=== PATIENT | female | born 1965 | race Caucasian/White ===

== ENCOUNTER 2016-08-02 23:01 | Inpatient (IN) ==
[2016-08-02] MEDS ORDERED: THIAMINE 200 MG/2 ML VIAL IV STA (23:28)
[2016-08-02] MEDS ORDERED: SODIUM CHLORIDE 0.9% 1,000 ML IV STA (23:28)
--- NOTE | 2016-08-02 23:34 | Emergency Department Note ---
Arrival - Arrival Chief Complaint: Altered Mental Status ED Nursing Triage Note: C/O Altered mental status. Onset EMS reports that pts states he has been "fighting" with her all day because she has been so confused. reported hyperglycemia earlier today of 540- Pt was given 35 units of her regular insulin by her and last FSG was 169, denies any changes in her mental status even after the glucose has come down. Pt wakes up with verbal stimuli, withdraws from pain and is inappropriate with communication. The only answer she gives is "2016". Family at bedside, but they are unaware of her medical history. is on his way per EMS. EMS gave 250ml NS/2 dose of narcan without any relief in symptoms Mode of Arrival: Stretcher Limitations: Altered Mental Status Source: Family, EMS Time Seen by Provider: 08/02/16 23:15 - History of Present Illness HPI Narrative: History is limited due to the patient's altered mental status. The family that is present is also not able to give much history. Apparently at some point early in the day the patient was confused and had decreased responsiveness. They think she was hypoglycemic and was given something to get her glucose up. At this point she was hyperglycemic and was given insulin to get it down. Her mental status has not changed during all of this. They report no recent illness or other symptoms. She has just confused, mumbling and not cooperative. They do not think she has ever had episodes like this before. They denied drug use but states she does drink alcohol regularly. Her last drink was yesterday. She was given Narcan by EMS without change. Date of Last Menstrual Period: unknown Allergies/Adverse Reactions: Allergies Allergy/AdvReac Type Severity Reaction Status Date / Time Unable to Obtain Allergy Unverified 08/02/16 23:11 Home Medications: Home Medications Medication Instructions Recorded Confirmed Type Unable To Obtain [Unable to Obtain] 08/02/16 08/02/16 History Review of System - Review of System ROS unobtainable: due to mental status Medical,Surgical,& Family Hx - Medical History Endocrine: History of: Diabetes Mellitus (IDDM) - Social History Smoking Status: Unknown if ever smoked Frequency of Alcohol Use: Unknown Type of Drug Use: Unknown Exam Physical Examination: GENERAL: Alert. Awake . Staring at fingers . Not cooperative with history or exam. No acute distress. HEENT: Normocephalic and atraumatic. PERRLA. EOMI. There is no nasal drainage. Uncooperative with oropharyngeal exam. NECK: Normal inspection. Supple. No lymphadenopathy or meningismus. LUNGS: No respiratory distress. Clear to auscultation bilaterally, no wheezes, rales or rhonchi. HEART: Regular rate and rhythm. ABDOMEN: Soft, nontender and nondistended with normoactive bowel sounds. BACK: Normal inspection. SKIN: Color normal. Warm and dry. EXTREMITIES: Nontender. Normal range of motion. No pedal edema. NEUROLOGICAL/PSYCHIATRIC: Awake and alert. Uncooperative with history or physical. The patient is staring at her fingers and pinching one hand with other. When asked if she sees anything there she only mumbles unintelligibly. Movements are all very slow but there is no obvious cranial, motor or sensory deficit. Vital Signs: Vital Signs Temperature 98.4 F 08/02/16 23:01 Pulse Rate 111 H 08/02/16 23:01 Respiratory Rate 16 08/03/16 00:16 Blood Pressure 135/84 08/02/16 23:01 O2 Sat by Pulse Oximetry 98 08/02/16 23:01 Course - Reevaluation(s) Reevaluation #1: The patient has been combative at times and also almost catatonic at times. She is uncooperative and still will not give any history. At times it appears she is seeing things on her hands but will not confirm that. Her workup is negative. I suspect that this is alcohol withdrawal based on the very limited history that I have. I have discussed the patient with Dr. Harkins who will see her and admit. Time: 01:05 Results - Labs CBC & BMP: 08/02/16 23:59 08/02/16 23:59 Lab Results: I have reviewed the patients labs Labs: Laboratory Tests 08/02/16 08/02/16 08/02/16 00:10 23:59 23:59 ABG pH 7.427 ABG pCO2 32.4 L ABG pO2 102.0 H ABG HCO3 22.7 ABG Total CO2 18.5 L ABG O2 Saturation 98.3 ABG Base Excess -2.1 FiO2 24.00 Magnesium 2.4 Total Bilirubin 0.40 AST 14 ALT 14 Ammonia < 10 L Urine Glucose (UA) Urine Ketones Urine Leukocytes Urine RBC Urine WBC Urine Opiates Screen Negative Ur Barbiturates Screen Negative Ur Phencyclidine Scrn Negative U Amphetamine/Methamph Negative U Benzodiazepines Scrn Negative U Cocaine Metab Screen Negative U Cannabinoids Screen Negative Serum Alcohol < 15 L 08/02/16 23:59 ABG pH ABG pCO2 ABG pO2 ABG HCO3 ABG Total CO2 ABG O2 Saturation ABG Base Excess FiO2 Magnesium Total Bilirubin AST ALT Ammonia Urine Glucose (UA) >=500 Urine Ketones 20 Urine Leukocytes Negative Urine RBC <1 Urine WBC 1 Urine Opiates Screen Ur Barbiturates Screen Ur Phencyclidine Scrn U Amphetamine/Methamph U Benzodiazepines Scrn U Cocaine Metab Screen U Cannabinoids Screen Serum Alcohol Disposition Clinical Impression: Altered mental status Case discussed with: patient, patient's family Disposition: Still a Patient Condition: Stable Time of Disposition: 01:07
[2016-08-02] MEDS ORDERED: THIAMINE 200 MG/2 ML VIAL ONE (23:42)
[2016-08-03 00:08] LABS: Basophils # 0.1 10*3/uL (0.0-0.2); Basophils % 0.8 % (0.0-0.8); Eosinophils # 0.1 10*3/uL (0.0-0.87); Eosinophils % 0.6 % (0.00-10.9); Hematocrit 40.6 VOL% (35.7-47.0); Hemoglobin 12.9 GM/DL (12.0-16.0); Immature Granulocytes % 0.5 %; Immature Granulocytes Absolute 0.06 #; Lymphocytes % 23.4 % (21.3-54.2); Mean Corpuscular HGB Conc 31.8 GM/DL (32-36); Mean Corpuscular Hemoglobin 29 PG (27-34); Mean Corpuscular Volume 91.2 FL (87-102); Mean Platelet Volume 10.6 FL (9.6-12.0); Monocytes # 1.5 10*3/uL (0.11-0.8); Monocytes % 11.7 % (1.7-12.7); Neutrophils # 8.2 10*3/uL (1.4-7.4); Platelet Count 390 10*3/uL (130-400); Red Blood Count 4.45 10*6/uL (3.8-5.5); Red Cell Distribution Width 15.5 % (9.3-17.3); White Blood Count 12.9 10*3/uL (4.5-13.71)
[2016-08-03 00:16] LABS: Apearance,Urine CLEAR (Clear); Bilirubin,Urine Negative (Negative); Blood, Urine Negative (Negative); Glucose,Urine (UA) >=500 mg/dL (Negative); Ketones,Urine 20 mg/dL (Negative); Nitrite,Urine Negative (Negative); Protein,Urine Negative; RBC,Urine <1 /HPF (0-4); Squamous Epithelial Cell,Urine Occasional /HPF (0-10); Urine Color Yellow (Yellow); Urine Specific Gravity 1.024 (1.001-1.035); Urine Urobilinogen < 2.0 EU/DL (0.2-1.0); WBC,Urine 1 /HPF (0-6)
[2016-08-03 00:24] LABS: ABG Base Excess -2.1 MMOL/L (-2.5-2.5); ABG HCO3 22.7 MMOL/L (20-26); ABG Oxygen Saturation 98.3 % (95-100); ABG PCO2 32.4 MM HG (35-48); ABG PH 7.427 (7.35-7.45); ABG TCO2 18.5 MMOL/L (23-27); Allen Test Positive; Pt O2 Delivery Device Room Air
[2016-08-03 00:34] LABS: Ammonia < 10 UMOL/L (11-32)
[2016-08-03 00:36] LABS: Alanine Aminotransferase 14 U/L (13-56); Albumin 3.6 G/DL (3.4-5.0); Alkaline Phosphatase 88 U/L (45-117); Aspartate Amino Transferase 14 U/L (0-37); Blood Urea Nitrogen 19 MG/DL (7-18); Calcium 9.2 MG/DL (8.5-10.1); Glucose 70 MG/DL (74-106); Magnesium 2.4 MG/DL (1.8-2.4); Osmolality,Calculated 287.7 MOS/KG (273-304); Potassium 4.2 MMOL/L (3.5-5.1); Sodium 145 MMOL/L (136-145); Total Protein 7.4 G/DL (6.4-8.3)
[2016-08-03 01:00] LABS: Barbiturates Screen,Urine Negative (Negative); Benzodiazepines Screen,Urine Negative (Negative); Cannabinoid Screen,Urine Negative (Negative); Opiate Screen,Urine Negative (Negative); Phencyclidine Screen,Urine Negative (Negative)
[2016-08-03] MEDS ORDERED: DEXTROSE 50% 25 GM/50 ML VIAL IV ONE (02:01)
[2016-08-03] MEDS ORDERED: DEXTROSE 50% 25 GM/50 ML VIAL IV STA (02:01)
[2016-08-03] MEDS ORDERED: ALBUTEROL 2.5 MG/3 ML NEB RESP TX PRN (02:10)
[2016-08-03] MEDS ORDERED: ACETAMINOPHEN 325 MG TABLET PO PRN (02:10)
[2016-08-03] MEDS ORDERED: MORPHINE 2 MG/1 ML SYRINGE IV PRN (02:10)
[2016-08-03] MEDS ORDERED: NICOTINE 21 MG/24 HR PATCH TRANSDERM PRN (02:10)
[2016-08-03] MEDS ORDERED: BISACODYL 5 MG TABLET PO PRN (02:10)
--- NOTE | 2016-08-03 02:10 | Hospitalist History & Physical ---
Assessment and Plan - Time spent with patient Time spent with patient: Greater than 30 minutes (1) Acute metabolic encephalopathy Status: Acute Current Visit: Yes (2) Hypoglycemic insulin reaction in type 1 diabetes mellitus Status: Acute Current Visit: Yes (3) Alcohol withdrawal Status: Acute Current Visit: Yes (4) Smoker Status: Acute Assessment and plan: Plan: 08/03: We'll admit to the ICU due to her severely labile mood and blood sugar. Now she is screaming obscenities as a nurse's try to place a Jacobson catheter. Unclear she has ingested some substance that is undetectable by our drug screen. Alternatively this could be severe encephalopathy due to prolonged hypoglycemic state. Hopefully the may be able to provide more details once we are able to reach him. Current Visit: Yes History of Present Illness Chief complaint: confused, combative, family called EMS, labile blood sugar History of present illness: Ms. Paul is a 51 year old female insulin-dependent diabetic, smoker, regular alcohol use who according to the son whose only family member at the bedside reports that the patient was found to be hypoglycemic this morning. He states that his father woke up, found her "not acting right," checked her blood sugar and it was low. Afterwards he gave her "sugary foods," to get her blood sugar up and per the chart it went up to around 540. Subsequently the gave her 20-30 units of regular insulin, called EMS and she was brought here. She has been obtunded, combative at times, and is unable to provide any history whatsoever. At the bedside ahead and recheck blood sugar and it was 20. The son can provide only limited history. The is not present. Her urine drug screen was negative, alcohol level was negative, and other than abnormal glucose, her lab work is fairly unremarkable. CT brain chest x-ray are unremarkable. There could also be a component of alcohol withdrawal, she'll be admitted to the ICU for further close observation. Home Medications Medication Instructions Recorded Confirmed Type Unable To Obtain [Unable to Obtain] 08/02/16 08/02/16 History Allergies Allergy/AdvReac Type Severity Reaction Status Date / Time Unable to Obtain Allergy Unverified 08/02/16 23:11 Medical,Surgical,& Family Hx - Medical History Cardio: No history of: Hypertension Endocrine: History of: Diabetes Mellitus (IDDM) - Surgical History Reproductive Surgeries: Surgical HX of;: Section - Family History Family History: noncontributory - Social History Smoking Status: Current every day smoker Have you smoked in the last 12 months: Yes (unable to discuss smoking cessation due to obtundation) Frequency of Alcohol Use: Frequently Type of Drug Use: Unknown Marital Status: Lives With:: Spouse Functional capacity: independent ambulation Review of systems: A 12 point review of systems is negative except as specified in the HPI Exam - Constitutional Vitals: Period Temp Pulse Resp BP Sys/Alarcon Pulse Ox Last 24 Hr 98.4 F 111 14-16 135/84 98 Exam: EXAM: CONSTITUTIONAL: Thin, disheveled, non toxic, obtunded HEENT: NC, AT, OP very poor dentition, MARIA G, EOMI CV: RRR no m/g/r RESP: clear B/L, no w/r/r GI: abd soft, NT, ND, +bowel sounds INTEGUMENTARY: no lesions or rash EXTREMITIES: no c/c/e NEURO: no focal deficits, unable to participate with full exam PSYCH: Unable to obtain Results - Labs CBC & BMP: 08/02/16 23:59 08/02/16 23:59 Lab Results: I have reviewed the past 24 hour labs - Diagnostic Findings Procedure: Chest x-ray: image reviewed by me, CT: image reviewed by me, report reviewed by me
[2016-08-03] MEDS ORDERED: DEXTROSE 50% 25 GM/50 ML VIAL IV PRN (02:14)
[2016-08-03] MEDS ORDERED: GLUCAGON 1 MG VIAL IM PRN (02:14)
[2016-08-03] MEDS ORDERED: chlordiazePOXIDE 25 MG CAPSULE PO PRN (02:15)
[2016-08-03] MEDS ORDERED: LORazepam 2 MG/1 ML VIAL IV PRN (02:15)
[2016-08-03] MEDS: INSULIN REGULAR 100 UNIT/ML SUBCUT SCH ×12 (03:27→23:50)
[2016-08-03] MEDS: DEXTROSE 5% NACL 0.45% 1,000 ML IV SCH ×2 (03:27→18:05)
[2016-08-03] MEDS: PANTOPRAZOLE 40 MG VIAL IV SCH (03:43)
[2016-08-03] MEDS: ENOXAPARIN 40 MG/0.4 ML SYRINGE SUBCUT SCH (03:43)
[2016-08-03 05:27] LABS: Basophils # 0.1 10*3/uL (0.0-0.2); Basophils % 0.7 % (0.0-0.8); Eosinophils # 0.2 10*3/uL (0.0-0.87); Eosinophils % 1.4 % (0.00-10.9); Hemoglobin 12.2 GM/DL (12.0-16.0); Immature Granulocytes % 0.4 %; Immature Granulocytes Absolute 0.05 #; Lymphocytes # 3.1 10*3/uL (1.4-4.0); Lymphocytes % 26.5 % (21.3-54.2); Mean Corpuscular HGB Conc 31.3 GM/DL (32-36); Mean Corpuscular Hemoglobin 29 PG (27-34); Mean Corpuscular Volume 92.4 FL (87-102); Mean Platelet Volume 9.9 FL (9.6-12.0); Monocytes # 1.2 10*3/uL (0.11-0.8); Monocytes % 9.9 % (1.7-12.7); Neutrophils # 7.2 10*3/uL (1.4-7.4); Neutrophils % 61.1 % (38.7-73.9); Platelet Count 456 10*3/uL (130-400); Red Blood Count 4.22 10*6/uL (3.8-5.5); Red Cell Distribution Width 15.6 % (9.3-17.3); White Blood Count 11.8 10*3/uL (4.5-13.71)
[2016-08-03 05:51] LABS: Ammonia < 10 UMOL/L (11-32)
[2016-08-03 06:00] LABS: Troponin I Only 0.019 NG/ML (0.00-0.045)
[2016-08-03 06:06] LABS: Albumin 3.2 G/DL (3.4-5.0); Bilirubin,Total 0.5 MG/DL (0.2-1.0); Calcium 8.6 MG/DL (8.5-10.1); Osmolality,Calculated 291.6 MOS/KG (273-304); Potassium 4.2 MMOL/L (3.5-5.1); Risk Ratio 1.88; Total Protein 6.8 G/DL (6.4-8.3)
--- NOTE | 2016-08-03 06:06 | CT Report ---
CT the head without contrast. There is a preliminary report from [facility]. There is a comparison study from April 29, 2013. Additional comparison, December 12, 2012. There is generalized atrophy, accelerated for the patient's age. There is no mass effect or midline shift. There is no evidence of acute hemorrhage. Along the right calvarial convexity, there is an extra-axial calcified density measuring 8 mm. Is possibly slightly larger than seen on the previous study. No cortical infarcts are visible. The calvarium is intact. There is rather extensive mucosal thickening within the frontal sinuses and the ethmoid sinuses, with opacification of both maxillary sinuses, and fluid in the left sphenoid. The mastoids are clear. Impression: Generalized atrophy, more prominent than typically expected in a patient of this age. Calcified extra-axial lesion along the right parietal region, slightly increased from 2013 exams. The features are most suggestive of a meningioma, which could be confirmed with a contrasted MRI. Extensive paranasal sinus disease. PROCEDURE INTERPRETED AT [facility] DEPARTMENT OF RADIOLOGY Final Report Signed by: Dr. China Hay
[2016-08-03 06:22] LABS: Free T4 (Free Thyroxine) 1.09 NG/DL (0.76-1.46); Thyroid Stimulating Hormone 1.01 uIU/ml (0.358-3.74)
--- NOTE | 2016-08-03 06:46 | XRay Report ---
Portable chest. Indication: Altered mental status. Comparison: April 29, 2013. The heart is normal in size. The pulmonary vasculature is normal. The lung garduno are clear. Slight midthoracic scoliosis. Impression: No acute abnormality. PROCEDURE INTERPRETED AT [facility] DEPARTMENT OF RADIOLOGY Final Report Signed by: Dr. China Hay
[2016-08-04] MEDS: INSULIN REGULAR 100 UNIT/ML SUBCUT SCH ×7 (01:46→21:22)
[2016-08-04] MEDS: PANTOPRAZOLE 40 MG VIAL IV SCH (02:03)
[2016-08-04] MEDS: ENOXAPARIN 40 MG/0.4 ML SYRINGE SUBCUT SCH (02:03)
[2016-08-04 05:25] LABS: Basophils # 0.1 10*3/uL (0.0-0.2); Basophils % 0.5 % (0.0-0.8); Eosinophils # 0.3 10*3/uL (0.0-0.87); Eosinophils % 3.6 % (0.00-10.9); Hematocrit 40.6 VOL% (35.7-47.0); Hemoglobin 12.2 GM/DL (12.0-16.0); Immature Granulocytes % 0.5 %; Immature Granulocytes Absolute 0.05 #; Lymphocytes # 2.6 10*3/uL (1.4-4.0); Lymphocytes % 28.3 % (21.3-54.2); Mean Corpuscular Hemoglobin 29 PG (27-34); Mean Corpuscular Volume 97.1 FL (87-102); Mean Platelet Volume 11.3 FL (9.6-12.0); Monocytes # 0.6 10*3/uL (0.11-0.8); Monocytes % 6.1 % (1.7-12.7); Neutrophils # 5.7 10*3/uL (1.4-7.4); Platelet Count 275 10*3/uL (130-400); Red Blood Count 4.18 10*6/uL (3.8-5.5); Red Cell Distribution Width 15.8 % (9.3-17.3); White Blood Count 9.3 10*3/uL (4.5-13.71)
[2016-08-04 05:49] LABS: Albumin 2.8 G/DL (3.4-5.0); Bilirubin,Total 0.5 MG/DL (0.2-1.0); Calcium 8.3 MG/DL (8.5-10.1); Osmolality,Calculated 292.1 MOS/KG (273-304); Potassium 4.8 MMOL/L (3.5-5.1); Total Protein 6.1 G/DL (6.4-8.3)
--- NOTE | 2016-08-04 08:21 | Hospitalist Progress Note ---
Assessment and Plan (1) Altered mental status Status: Acute Assessment and plan: The patient was moving the hospital with metabolic encephalopathy consistent with severe hypoglycemia in a patient with diabetes mellitus type 1 taking insulin with minimal supervision. The patient's blood glucose has been supported with dextrose overnight. The patient's more alert. I'm going to restart some baseline intermediate acting insulin twice daily and continue giving IV dextrose and re-feed the patient. I anticipate withdrawing intravenous dextrose support and adjusting insulin prior to discharge home. The patient seems to have had a profound hypoglycemic episode causing her metabolic encephalopathy and may take an extended period of days before she returns to baseline. Current Visit: Yes Qualifiers: Altered mental status type: disorientation Qualified Code(s): R41.0 - Disorientation, unspecified (2) Acute metabolic encephalopathy Status: Acute Current Visit: Yes (3) Hypoglycemic insulin reaction in type 1 diabetes mellitus Status: Acute Current Visit: Yes Hospitalist: Subjective Interval history: The patient is awake and alert this morning. She does not complain of headache shortness of breath or angina. The patient was offered some food but says she has minimal appetite. Exam - Constitutional Vitals: Period Temp Pulse Resp BP Sys/Alarcon Pulse Ox Last 24 Hr 97.5 F-99.1 F 77-109 12-24 117-150/73-95 96-100 Exam: Constitutional System: No distress. No tremulousness. Flat affect Head: Normocephalic, atraumatic. Ears, Nose and Throat System: No evidence of Otitis or Mastoiditis. No epistaxis or discharge Eyes System: Pupils equal, round, and reactive. Extraocular muscles intact. Neck: Supple, without adenopathy, No jugular venous distention. No thyromegaly , neck mass, or prior surgery apparent. Respiratory System: Chest clear to auscultation. Cardiovascular System: Heart with regular rate and rhythm. No murmur. GI System: Abdomen soft, nontender. Normoactive bowel sounds present. Musculoskeletal System: limbs with no pedal edema. Full distal pulses. Neurological System: No discernable sensory deficit. No aphasia Psychiatric System: Conversation is limited but rational Results - Labs CBC & BMP: 08/04/16 05:17 08/04/16 05:17 Lab Results: I have reviewed the past 24 hour labs
[2016-08-04] MEDS: INSULIN NPH 100 UNIT/ML SUBCUT SCH ×2 (08:27→16:46)
[2016-08-04] MEDS: DEXTROSE 5% NACL 0.45% 1,000 ML IV SCH (13:11)
[2016-08-05] MEDS: INSULIN REGULAR 100 UNIT/ML SUBCUT SCH ×6 (01:25→23:24)
[2016-08-05] MEDS: ENOXAPARIN 40 MG/0.4 ML SYRINGE SUBCUT SCH (02:54)
[2016-08-05 06:13] LABS: Basophils # 0.1 10*3/uL (0.0-0.2); Basophils % 0.4 % (0.0-0.8); Eosinophils # 0.4 10*3/uL (0.0-0.87); Eosinophils % 3.5 % (0.00-10.9); Hematocrit 35.6 VOL% (35.7-47.0); Hemoglobin 10.9 GM/DL (12.0-16.0); Immature Granulocytes % 0.4 %; Immature Granulocytes Absolute 0.05 #; Lymphocytes % 26.5 % (21.3-54.2); Mean Corpuscular HGB Conc 30.6 GM/DL (32-36); Mean Corpuscular Hemoglobin 28 PG (27-34); Mean Corpuscular Volume 92.5 FL (87-102); Monocytes # 0.8 10*3/uL (0.11-0.8); Monocytes % 6.7 % (1.7-12.7); Neutrophils % 62.5 % (38.7-73.9); Platelet Count 382 10*3/uL (130-400); Red Blood Count 3.85 10*6/uL (3.8-5.5); Red Cell Distribution Width 15.6 % (9.3-17.3); White Blood Count 11.2 10*3/uL (4.5-13.71)
[2016-08-05 07:00] LABS: Calcium 8.7 MG/DL (8.5-10.1); Osmolality,Calculated 290.7 MOS/KG (273-304); Potassium 4.4 MMOL/L (3.5-5.1)
[2016-08-05] MEDS: DEXTROSE 5% NACL 0.45% 1,000 ML IV SCH ×2 (08:43→13:57)
[2016-08-05] MEDS: INSULIN NPH 100 UNIT/ML SUBCUT SCH ×2 (08:49→17:22)
--- NOTE | 2016-08-05 10:45 | Hospitalist Progress Note ---
Assessment and Plan (1) Altered mental status Status: Acute Assessment and plan: The patient was admitted to the hospital with metabolic encephalopathy consistent with severe hypoglycemia in a patient with diabetes mellitus type 1 taking insulin with minimal supervision. The patient's blood glucose has been supported with dextrose overnight. The patient's more alert. I'm going to continue baseline intermediate acting insulin twice daily and observe the patient off dextrose infusion. The patient seems to have had a profound hypoglycemic episode causing her metabolic encephalopathy and may take an extended period of days before she returns to baseline. The patient did have positive blood cultures but has no illness at this time. I think that this is likely a contaminant. The patient did not have any pyuria but has gram negative rods seen on urine culture. Again she does not appear to have an infection and I'm going to hold off on any antibiotics for now. Current Visit: Yes Qualifiers: Altered mental status type: disorientation Qualified Code(s): R41.0 - Disorientation, unspecified (2) Acute metabolic encephalopathy Status: Acute Current Visit: Yes (3) Hypoglycemic insulin reaction in type 1 diabetes mellitus Status: Acute Current Visit: Yes Hospitalist: Subjective Interval history: The patient remains afebrile. Blood glucose has been supported with intravenous dextrose. The patient's appetite is poor. She is able to tolerate clear liquids but did not want much breakfast. The patient does not complain of diaphoresis or dysuria. Exam - Constitutional Vitals: Period Temp Pulse Resp BP Sys/Alarcon Pulse Ox Last 24 Hr 97.4 F-99.5 F 90-96 17-20 120-143/71-84 94-99 Exam: Constitutional System: No distress. No tremulousness. Flat affect but more energetic than yesterday Head: Normocephalic, atraumatic. Ears, Nose and Throat System: No evidence of Otitis or Mastoiditis. No epistaxis or discharge Eyes System: Pupils equal, round, and reactive. Extraocular muscles intact. Neck: Supple, without adenopathy, No jugular venous distention. No thyromegaly , neck mass, or prior surgery apparent. Respiratory System: Chest clear to auscultation. Cardiovascular System: Heart with regular rate and rhythm. No murmur. GI System: Abdomen soft, nontender. Normoactive bowel sounds present. Musculoskeletal System: limbs with no pedal edema. Full distal pulses. Neurological System: No discernable sensory deficit. No aphasia Psychiatric System: Conversation is limited but rational Results - Labs CBC & BMP: 08/05/16 05:37 08/05/16 05:37 Lab Results: I have reviewed the past 24 hour labs
[2016-08-06 05:36] LABS: Calcium 8.6 MG/DL (8.5-10.1); Osmolality,Calculated 292.7 MOS/KG (273-304); Potassium 4.3 MMOL/L (3.5-5.1)
[2016-08-06] MEDS: INSULIN REGULAR 100 UNIT/ML SUBCUT SCH ×4 (09:42→21:34)
[2016-08-06] MEDS: INSULIN NPH 100 UNIT/ML SUBCUT SCH ×2 (09:43→18:58)
[2016-08-06] MEDS: ENOXAPARIN 40 MG/0.4 ML SYRINGE SUBCUT SCH (09:44)
--- NOTE | 2016-08-06 12:53 | Hospitalist Progress Note ---
Assessment and Plan (1) Altered mental status Status: Acute Assessment and plan: The patient was admitted to the hospital with metabolic encephalopathy consistent with severe hypoglycemia in a patient with diabetes mellitus type 1 taking insulin with minimal supervision. The patient has no evidence of infection at this time. I'm going to titrate the insulin upwards to improve glycemic control while watching for any hypoglycemia. I'm hopeful that with continued avoidance of hypoglycemia the patient's reason will return. Current Visit: Yes Qualifiers: Altered mental status type: disorientation Qualified Code(s): R41.0 - Disorientation, unspecified (2) Acute metabolic encephalopathy Status: Acute Current Visit: Yes (3) Hypoglycemic insulin reaction in type 1 diabetes mellitus Status: Acute Current Visit: Yes Hospitalist: Subjective Interval history: The patient's blood glucose has not shown any hypoglycemia the last 24 hours. Appetite is improving. The patient still has metabolic encephalopathy but alertness is improved. The patient's behavior shows impulsiveness and poor judgment Exam - Constitutional Vitals: Period Temp Pulse Resp BP Sys/Alarcon Pulse Ox Last 24 Hr 97.2 F-98.8 F 85-100 16-20 123-150/69-85 93-98 Exam: Constitutional System: No distress. No tremulousness. Flat affect but more energetic than yesterday Head: Normocephalic, atraumatic. Ears, Nose and Throat System: No evidence of Otitis or Mastoiditis. No epistaxis or discharge Eyes System: Pupils equal, round, and reactive. Extraocular muscles intact. Neck: Supple, without adenopathy, No jugular venous distention. No thyromegaly , neck mass, or prior surgery apparent. Respiratory System: Chest clear to auscultation. Cardiovascular System: Heart with regular rate and rhythm. No murmur. GI System: Abdomen soft, nontender. Normoactive bowel sounds present. Musculoskeletal System: limbs with no pedal edema. Full distal pulses. Neurological System: No discernable sensory deficit. No aphasia Psychiatric System: Conversation is limited but rational Results - Labs CBC & BMP: 08/05/16 05:37 08/06/16 04:36 Lab Results: I have reviewed the past 24 hour labs
[2016-08-06] MEDS: CEFUROXIME 250 MG TABLET PO SCH ×2 (14:49→21:32)
[2016-08-07] MEDS: INSULIN REGULAR 100 UNIT/ML SUBCUT SCH ×4 (08:45→21:18)
[2016-08-07] MEDS: INSULIN NPH 100 UNIT/ML SUBCUT SCH ×2 (08:45→17:00)
[2016-08-07] MEDS: ENOXAPARIN 40 MG/0.4 ML SYRINGE SUBCUT SCH (08:52)
[2016-08-07] MEDS: CEFUROXIME 250 MG TABLET PO SCH ×2 (08:52→21:18)
--- NOTE | 2016-08-07 09:24 | Hospitalist Progress Note ---
Assessment and Plan (1) Altered mental status Status: Acute Assessment and plan: The patient was admitted to the hospital with metabolic encephalopathy consistent with severe hypoglycemia in a patient with diabetes mellitus type 1 taking insulin with minimal supervision. The patient has no evidence of infection at this time. I'm going to titrate the insulin upwards to improve glycemic control while watching for any hypoglycemia. The patient will require supervision until her mental status and skills improved. fast food services manager is arranging for swing bed. Current Visit: Yes Qualifiers: Altered mental status type: disorientation Qualified Code(s): R41.0 - Disorientation, unspecified (2) Acute metabolic encephalopathy Status: Acute Current Visit: Yes (3) Hypoglycemic insulin reaction in type 1 diabetes mellitus Status: Acute Current Visit: Yes Hospitalist: Subjective Interval history: The patient was admitted to the hospital with profound hypoglycemia. She seems to had brain injury on account of the low glucose. The patient appears confused by her surroundings and is certainly unable to care for her diabetes at home it her presence skill level. Exam - Constitutional Vitals: Period Temp Pulse Resp BP Sys/Alarcon Pulse Ox Last 24 Hr 97.6 F-99.0 F 90-104 18-18 121-144/52-85 92-98 Exam: Constitutional System: No distress. No tremulousness. Flat affect but more energetic than yesterday Head: Normocephalic, atraumatic. Ears, Nose and Throat System: No evidence of Otitis or Mastoiditis. No epistaxis or discharge Eyes System: Pupils equal, round, and reactive. Extraocular muscles intact. Neck: Supple, without adenopathy, No jugular venous distention. No thyromegaly , neck mass, or prior surgery apparent. Respiratory System: Chest clear to auscultation. Cardiovascular System: Heart with regular rate and rhythm. No murmur. GI System: Abdomen soft, nontender. Normoactive bowel sounds present. Musculoskeletal System: limbs with no pedal edema. Full distal pulses. Neurological System: No discernable sensory deficit. No aphasia Psychiatric System: Conversation is limited but rational Results - Labs CBC & BMP: 08/05/16 05:37 08/06/16 04:36 Lab Results: I have reviewed the past 24 hour labs
[2016-08-08] MEDS: CEFUROXIME 250 MG TABLET PO SCH (08:30)
[2016-08-08] MEDS: INSULIN NPH 100 UNIT/ML SUBCUT SCH ×2 (08:30→16:52)
[2016-08-08] MEDS: INSULIN REGULAR 100 UNIT/ML SUBCUT SCH ×4 (08:45→21:51)
[2016-08-08] MEDS: ENOXAPARIN 40 MG/0.4 ML SYRINGE SUBCUT SCH (08:47)
--- NOTE | 2016-08-08 16:41 | Hospitalist Progress Note ---
Assessment and Plan (1) Altered mental status Status: Acute Assessment and plan: The patient was admitted to the hospital with metabolic encephalopathy consistent with severe hypoglycemia in a patient with diabetes mellitus type 1 taking insulin with minimal supervision. The patient has no evidence of infection at this time. I'm going to titrate the insulin upwards to improve glycemic control while watching for any hypoglycemia. The patient will require supervision until her mental status and skills improved. focused factory manager is arranging for swing bed. Current Visit: Yes Qualifiers: Altered mental status type: disorientation Qualified Code(s): R41.0 - Disorientation, unspecified (2) Acute metabolic encephalopathy Status: Acute Current Visit: Yes (3) Hypoglycemic insulin reaction in type 1 diabetes mellitus Status: Acute Current Visit: Yes Hospitalist: Subjective Interval history: The patient's blood glucose has been relatively stable. She still seems to have effects of labile affect and poor judgment. She seems to have had some brain injury from her hypoglycemic episode. She appears unable to care for her home diabetes. Exam - Constitutional Vitals: Period Temp Pulse Resp BP Sys/Alarcon Pulse Ox Last 24 Hr 97.9 F-98.5 F 73-93 16-20 108-130/65-72 97-100 Exam: Constitutional System: No distress. No tremulousness. Flat affect but more energetic than yesterday Head: Normocephalic, atraumatic. Ears, Nose and Throat System: No evidence of Otitis or Mastoiditis. No epistaxis or discharge Eyes System: Pupils equal, round, and reactive. Extraocular muscles intact. Neck: Supple, without adenopathy, No jugular venous distention. No thyromegaly , neck mass, or prior surgery apparent. Respiratory System: Chest clear to auscultation. Cardiovascular System: Heart with regular rate and rhythm. No murmur. GI System: Abdomen soft, nontender. Normoactive bowel sounds present. Musculoskeletal System: limbs with no pedal edema. Full distal pulses. Neurological System: No discernable sensory deficit. No aphasia Psychiatric System: Conversation is limited but rational Results - Labs CBC & BMP: 08/05/16 05:37 08/06/16 04:36 Lab Results: I have reviewed the past 24 hour labs
[2016-08-08] MEDS: cephALEXin 500 MG CAPSULE PO SCH (21:07)
[2016-08-09] MEDS: cephALEXin 500 MG CAPSULE PO SCH ×3 (06:27→21:08)
[2016-08-09] MEDS: INSULIN NPH 100 UNIT/ML SUBCUT SCH ×2 (08:54→16:17)
[2016-08-09] MEDS: ENOXAPARIN 40 MG/0.4 ML SYRINGE SUBCUT SCH (08:54)
[2016-08-09] MEDS: INSULIN REGULAR 100 UNIT/ML SUBCUT SCH ×4 (08:54→20:39)
--- NOTE | 2016-08-09 12:33 | Hospitalist Progress Note ---
Assessment and Plan (1) Altered mental status Status: Acute Assessment and plan: The patient was admitted to the hospital with metabolic encephalopathy consistent with severe hypoglycemia in a patient with diabetes mellitus type 1 taking insulin with minimal supervision. The patient has no evidence of infection at this time. I'm going to titrate the insulin upwards to improve glycemic control while watching for any hypoglycemia. The patient will require supervision until her mental status and skills improved. Current Visit: Yes Qualifiers: Altered mental status type: disorientation Qualified Code(s): R41.0 - Disorientation, unspecified (2) Acute metabolic encephalopathy Status: Acute Current Visit: Yes (3) Hypoglycemic insulin reaction in type 1 diabetes mellitus Status: Acute Current Visit: Yes Hospitalist: Subjective Interval history: This patient was admitted to the hospital with profound hypoglycemia and was unconscious for several days. She was initially treated in intensive care unit with dextrose infusion before improving and regaining consciousness. The patient appears to be a little more reasonable each day. She seems to have sustained a brain injury due to hypoglycemia. The patient is uninsured having needs to return home. The patient appears to be capable of administering her own insulin and I'm hopeful than another day or so she will be rational enough to do so safely. Exam - Constitutional Vitals: Period Temp Pulse Resp BP Sys/Alarcon Pulse Ox Last 24 Hr 97.4 F-98.8 F 80-94 17-80 106-128/64-71 94-97 Exam: Constitutional System: No distress. No tremulousness. Flat affect but more energetic than yesterday Head: Normocephalic, atraumatic. Ears, Nose and Throat System: No evidence of Otitis or Mastoiditis. No epistaxis or discharge Eyes System: Pupils equal, round, and reactive. Extraocular muscles intact. Neck: Supple, without adenopathy, No jugular venous distention. No thyromegaly , neck mass, or prior surgery apparent. Respiratory System: Chest clear to auscultation. Cardiovascular System: Heart with regular rate and rhythm. No murmur. GI System: Abdomen soft, nontender. Normoactive bowel sounds present. Musculoskeletal System: limbs with no pedal edema. Full distal pulses. Neurological System: No discernable sensory deficit. No aphasia Psychiatric System: Conversation is limited but rational Results - Labs CBC & BMP: 08/05/16 05:37 08/06/16 04:36 Lab Results: I have reviewed the past 24 hour labs
[2016-08-10] MEDS: cephALEXin 500 MG CAPSULE PO SCH ×3 (06:06→20:59)
[2016-08-10] MEDS: INSULIN REGULAR 100 UNIT/ML SUBCUT SCH ×4 (08:48→20:59)
[2016-08-10] MEDS: INSULIN NPH 100 UNIT/ML SUBCUT SCH ×2 (08:48→16:57)
--- NOTE | 2016-08-10 10:41 | Discharge Summary ---
Addendum entered and electronically signed by Jade Dias NP 08/11/16 11:36: Discharge was held yesterday due to glucoses. She has been seen and new recommendations have been given and she is now ready for discharge on 08/11/16 on appropriate home medications and follow up. Original Note: <Jade Dias - Last Filed: 08/10/16 10:35> Hospital Course - Hospital Course Hospital Course: Ms. Paul was admitted on 08/03 with acute metabolic encephalopathy, hypoglycemia due to insulin, etoh withdrawal and a smoker. She was given "sugary foods" when she was found to have a low sugar at home, and this has come up. CT brain and CXR were negative. Her hypoglycemia has resolved, and she is now running 180-425. Labs and vitals are stable and her mental status has improved and she is ready for discharge home today. - Time spent with patient Time with patient DS: Less than 30 minutes (due to plan, doc and med rec.) Diagnosis - Discharge Diagnosis (1) Acute metabolic encephalopathy Status: Acute (2) Alcohol withdrawal Status: Acute (3) Altered mental status Status: Acute (4) Hypoglycemic insulin reaction in type 1 diabetes mellitus Status: Acute (5) Smoker Status: Acute Discharge Plan - Discharge Data Disposition: Disch To Home/Self Care - Discharge Medications No Action Insulin Regular, Human [NovoLIN R] See Protocol SUBCUT PRN PRN Reason: Glucose Management Insulin NPH Human Isophane [NovoLIN N] See Protocol SUBCUT PRN PRN Reason: Glucose Management - Follow Up or Referral - Forms/Instructions Exam - Constitutional Vitals: Period Temp Pulse Resp BP Sys/Alarcon Pulse Ox Last 24 Hr 97.7 F-98.7 F 72-98 16-20 105-122/58-68 94-99 Discharge Results Labs on day of discharge: Labs from last 24 hours 08/10/16 08/10/16 08/10/16 11:41 10:45 07:13 Glucose 426 POC Glucose 451 H 425 H 08/09/16 08/09/16 18:23 14:53 Glucose POC Glucose 180 H 132 H DS: Provider Date of admission: 08/03/16 02:10 Primary care physician: . No PCP Attending physician on admission: Cosme Harkins DO Consults: 08/03/16 03:00 Consult to Pharmacy [CONS] Routine Reason for Pharmacy Consult: Adjust Meds Renal Funct 08/03/16 04:02 Consult to [facility], Educator [CONS] Routine Reason for Trade Facilitator: Diabetes Education 08/06/16 13:52 Consult to Physical Therapy [CONS] Routine Reason for Physical Therapy: Evaluate and Treat Ambulation Start Therapy: Today Consult Comment: will need a walker 08/07/16 09:11 Consult to Case Mgmt/Social Srvs [CONS] Routine Reason for Case Mgmt/Social Srvs: Swingbed/SNF/Skilled Nursing Consult Comment: needs swingbed placement Discharging clinician: Jade Dias NP Expected date of discharge: 08/10/16 <Fanta Pierre - Last Filed: 08/11/16 12:14> Hospital Course - Hospital Course Hospital Course: She also had positive blood cultures did return positive with Staphylococcus simulans suspected to be however she was started on Keflex by mouth. Repeat blood cultures have been negative. Given the fact that 2 bottles were positive I will treat as presumes infectious etiology which also could've been contributing to her hypoglycemic not completely understanding how she should be taken her insulin regimen. As stated, repeat blood cultures remain negative the bacterial was pansensitive we will send her home on levaquin for 14 days. 08/11/16: she still is having ultrasonic solderer hyperglycemia in which I wanted to keep her another day for 3 am labs but she had refused. she will be discharged home. Diagnosis - Discharge Diagnosis (1) Bacteremia Status: Acute (2) Acute metabolic encephalopathy Status: Acute (3) Hypoglycemic insulin reaction in type 1 diabetes mellitus Status: Acute Discharge Plan - Discharge Data Condition at Discharge: Stable Discharge Diet: diabetic diet Contact your physician if you experience:: fever over 101, Shortness of breath Exam - Constitutional General appearance: no acute distress - Head Head exam: Present: normocephalic, atraumatic - Eye Eye exam: Present: EOMI Pupils: Present: MARIA G - ENT ENT exam: Present: normal exam - Respiratory Respiratory exam: Present: clear to auscultation bilaterally - Cardiovascular Cardiovascular exam: Present: regular rate and rhythm - GI/Abdominal GI/Abdominal exam: Present: normal bowel sounds, soft - Extremities Exam Extremities exam: Present: full ROM - Neurological Exam Neurological exam: Present: alert, oriented X3, CN II-XII intact - Psychiatric Psychiatric exam: Present: normal affect, normal mood - Skin Skin exam: Present: warm, intact
[2016-08-11] MEDS: cephALEXin 500 MG CAPSULE PO SCH ×2 (05:41→13:46)
[2016-08-11] MEDS: INSULIN REGULAR 100 UNIT/ML SUBCUT SCH (06:29)
[2016-08-11] MEDS: INSULIN NPH 100 UNIT/ML SUBCUT SCH ×2 (06:29→17:39)
[2016-08-11] MEDS ORDERED: GLUCAGON 1 MG VIAL IM PRN (09:41)
[2016-08-11] MEDS ORDERED: DEXTROSE 50% 25 GM/50 ML VIAL IV PRN (09:41)
--- NOTE | 2016-08-11 09:43 | Hospitalist Progress Note ---
Assessment and Plan - Time spent with patient Time spent with patient: Less than 30 minutes (due to assessment, plan and doc) (1) Acute metabolic encephalopathy Status: Acute Current Visit: Yes (2) Alcohol withdrawal Status: Acute Current Visit: Yes (3) Altered mental status Status: Acute Current Visit: Yes Qualifiers: Altered mental status type: disorientation Qualified Code(s): R41.0 - Disorientation, unspecified (4) Hypoglycemic insulin reaction in type 1 diabetes mellitus Status: Acute Current Visit: Yes (5) Smoker Status: Acute Current Visit: Yes Hospitalist: Subjective Interval history: Ms. Kelly sugar is up to 471 this morning. She has required 12 units of SSI this morning. Will see what re-check is. She is taking 20 units of Humulin N AC. public interviewer recommended increasing PM dose of NPH to 16 units and continue AM dillon of NPH at 20 units. Her sliding scale has been bumped up to a medium sliding scale per RD recs and recent sugars. Will continue to follow. Exam - Constitutional Vitals: Period Temp Pulse Resp BP Sys/Alarcon Pulse Ox Last 24 Hr 97.4 F-99.4 F 88-98 16-20 103-121/55-74 94-98 General appearance: normal weight, no acute distress - Head Head exam: Present: normal inspection, normocephalic - Eye Eye exam: Present: EOMI. Absent: scleral icterus Pupils: Present: MARIA G, normal accommodation - ENT ENT exam: Present: normal exam, normal oropharynx - Neck Neck exam: Present: normal inspection. Absent: lymphadenopathy - Respiratory Respiratory exam: Present: clear to auscultation bilaterally. Absent: accessory muscle use - Cardiovascular Cardiovascular exam: Present: regular rate and rhythm. Absent: carotid bruit - GI/Abdominal GI/Abdominal exam: Present: normal bowel sounds, soft. Absent: tenderness - Extremities Exam Extremities exam: Present: normal inspection. Absent: edema - Back Exam Back exam: Present: normal inspection. Absent: muscle spasm - Neurological Exam Neurological exam: Present: alert, oriented X3 - Psychiatric Psychiatric exam: Present: normal affect, normal mood - Skin Skin exam: Present: normal color, warm, dry, intact Results - Labs CBC & BMP: 08/05/16 05:37 08/10/16 11:41 Lab Results: I have reviewed the past 24 hour labs
[2016-08-11] MEDS: INSULIN LISPRO 100 UNIT/ML SUBCUT SCH ×2 (13:46→17:38)
[2016-08-11 16:55] VITALS: BP 102/67
== END 2016-08-11 18:15 | disposition home or self-care (01) | DRG 637 ==
LOC: EDUNIT# → EDBD → N.ED 23:01 → SUATTDRO 08-03 02:10 → N.EDINP 08-03 02:10 → N.ICU 08-03 02:51 → N.5E 08-04 14:08
PROVIDERS: ADMIT Internal Medicine; ATTEND Internal Medicine